=== PATIENT | female | born 1990 | race Caucasian/White ===

== ENCOUNTER → 2019-08-11 09:25 | Outpatient (BNVA) | payer OTHER, SELFPAY | PROVIDERS: Family Provider Nurse Practitioner; PCP Nurse Practitioner Family; Visit Provider Nurse Practitioner Women's Health | DX: Z30.41 Encounter for surveillance of contraceptive pills (principal); N92.1 Excessive and frequent menstruation with irregular cycle; Z01.419 Encounter for gynecological examination (general) (routine) without abnormal findings | CPT/HCPCS: 88175 ==

== ENCOUNTER → 2019-09-15 10:50 | Outpatient (BNVA) | payer OTHER, SELFPAY | PROVIDERS: Family Provider Nurse Practitioner; PCP Nurse Practitioner Family; Visit Provider Obstetrics & Gynecology | DX: R87.612 Low grade squamous intraepithelial lesion on cytologic smear of cervix (LGSIL) (principal) | CPT/HCPCS: 88305 ==

== ENCOUNTER → 2019-12-15 13:56 | Outpatient (BNVA) | payer OTHER, SELFPAY | PROVIDERS: PCP Nurse Practitioner Family; Visit Provider Family Medicine | DX: Z20.828 Contact with and (suspected) exposure to other viral communicable diseases (principal) | CPT/HCPCS: 87635 ==

== ENCOUNTER → 2019-12-16 16:20 | Outpatient (BNVA) | payer OTHER, SELFPAY | PROVIDERS: PCP Nurse Practitioner Family; Visit Provider Obstetrics & Gynecology | DX: Z01.818 Encounter for other preprocedural examination (principal) | CPT/HCPCS: 80053; 87077; 87086; 87186 ==

== ENCOUNTER 2019-12-20 09:37 | Observation (INO) | payer OTHER, SELFPAY ==
[2019-12-15 10:46] VITALS: BMI 26.2
--- NOTE | 2019-12-15 11:22 | ANES.PREANE2 ---
Pre-Anesthetic Assessment Pre-Anesthetic Assessment: Height/Weight: Height 1.63 m Weight 69.4 kg Preop Diagnosis: abnormal bleeding Proposed Procedure: Operation Date: 12/20/19 07:00 Proposed Procedures p Laparoscopic Assist Vaginal Hystectomy w/ Umbilical Hernia [id number](Not Applicable) - Rojas Ruggiero MD s Laparoscopic Salpingo Oophorectomy(Bilateral) - Rojas Ruggiero MD Familial anesthetic complications: epidural wore off, d/t scoliosis Social: Social History: No alcohol and No tobacco Exam: Pre-Anes Outpt Exam: alert, oriented x 3, clear to auscultation bilaterally and regular rate & rhythm Airway: Cervical ROM: WNL MP: 1 Dentition: Full and Other Musc/skel: Musc/skel: Scoliosis Anesthetic Plan: ASA status: 1 Anesthesia: General Risk of > 500 ml blood loss (7ml/kg in children): No PFSH Anesthesia PFSH: Medical History (Updated 10/03/19 @ 14:59 by Cynthia Mcleod LPN) Metrorrhagia Surgical History H/O section 1--07/08/2009 Done for arrest of descent./ cephalopelvic disproportion. Primary low transverse delivery. Performed by Dr. Faulkner [facility] in [place], [place]. 2--02/27/2016 Repeat low transverse section. Performed by Dr. Rojas Ruggiero at [facility] in [place], [place]. H/O lumpectomy She had a lumpectomy in her left breast at the age of 12 and 2 lumpectomies at the age of 16 from a right breast. Patient states all of these were benign History of tonsillectomy (~2006) Family History (Updated 08/26/19 @ 17:48 by Rojas Ruggiero MD) Grandfather Diabetes Paternal grandfather Grandmother Breast cancer Paternal grandmother Family history of thyroid problem Paternal grandmother Family/Other Ovarian cancer Paternal aunt Cervical cancer Paternal cousin Social History (Updated 09/17/19 @ 18:33 by Rojas Ruggiero MD) Smoking and tobacco status: never smoked Alcohol intake: never Female Reproductive History: Date of last menstrual period: 11/22/19 Data Anesthesia Cardiac Studies: No Data to Display
[2019-12-20] VITALS (17 sets, daily range): BP systolic 106–122; BP diastolic 59–84; PULSE 51–82; RESP 14–20; TEMP 36.5–37.4; O2SAT 95–100
[2019-12-20 06:20] LABS: OR HCG Qualitative Urine Negative (Negative)
[2019-12-20] MEDS: phenazopyridine 100 mg Tablet 200 MG PO ×3 (06:24→21:46)
[2019-12-20] MEDS: gabapentin 300 mg Capsule PO (06:25)
[2019-12-20] MEDS: sodium chloride 0.9% 1,000 ML 30 ML IV (06:33)
[2019-12-20] MEDS: ketorolac 30 mg/mL INJ IVP ×2 (06:33→11:51)
[2019-12-20 06:44] LABS: Basophils % 0.4 %; Eosinophils # 0.1 10^3/uL (0.0-0.8); Eosinophils % 1.6 %; Hematocrit 41.3 % (37.0-47.0); Hemoglobin 13.8 g/dL (11.5-15.3); Lymphocytes # 2.2 10^3/uL (0.8-4.8); Lymphocytes % 42.6 %; Mean Corpuscular HGB Conc 33.4 g/dL (30.0-36.0); Mean Corpuscular Hemoglobin 30.1 pg (28.0-34.0); Mean Corpuscular Volume 90.2 fL (81-99); Mean Platelet Volume 10.9 fL (7.4-10.4); Monocytes # 0.4 10^3/uL (0.2-0.9); Monocytes % 8.4 %; Neutrophils # 2.41 10^3/uL (1.8-7.7); Neutrophils % 46.8 %; Nucleated Red Blood Cells % 0 %; Platelet Count 225 10^3/cmm (130-400); Red Blood Count 4.58 10^6/uL (4.1-5.3); White Blood Count 5.1 10^3/uL (4.0-10.0)
--- NOTE | 2019-12-20 06:49 | P.HPUD_ITS ---
Surgery/Procedure H&P Update DATE OF PROCEDURE: December 20, 2019 DATE H&P PERFORMED: 12/16/19 H&P UPDATE INFORMATION: I have reviewed H&P completed within last 30 days, I have examined patient prior to procedure, Changes to prior documentation as noted here and [place] [facility] [place] date indicated CHANGES TO PREVIOUS DOCUMENTATION: Patient found to have asymptomatic bacteriuria on urine sample collected on 12/15. She has been taking Cephalexin for the last 24 hours and will complete a 7 day course. PREOP DIAGNOSIS: Menorrhagia PLANNED PROCEDURE: Operation Date: 12/20/19 07:00 Proposed Procedures p Laparoscopic Assist Vaginal Hystectomy w/ Umbilical Hernia [id number](Not Applicable) - Rojas Ruggiero MD s Laparoscopic Salpingo Oophorectomy(Bilateral) - Rojas Ruggiero MD
--- NOTE | 2019-12-20 06:51 | P.ANESUD_ITS ---
Pre-Anesthetic Update Pre-Anesthetic Assessment: Date of Surgery/Procedure: 12/20/19 Preop Rosy gnosis: Menorrhagia Proposed Procedure: Operation Date: 12/20/19 07:00 Proposed Procedures p Laparoscopic Assist Vaginal Hystectomy w/ Umbilical Hernia [id number](Not Applicable) - Rojas Ruggiero MD s Laparoscopic Salpingo Oophorectomy(Bilateral) - Rojas Ruggiero MD Any changes to Pre-Anesthetic Assessment?: No Last Intake: Intake Last Liquid Date 12/19/19 Last Liquid Time 22:00 Last Solid Date 12/19/19 Last Solid Time 22:00 Labs Last 48hrs: Laboratory Results - last 48 hr 12/20/19 12/20/19 06:30 06:30 WBC 5.1 RBC 4.58 Hgb 13.8 Hct 41.3 MCV 90.2 MCH 30.1 MCHC 33.4 RDW 12.0 L Plt Count 225 MPV 10.9 H Neut % (Auto) 46.8 Lymph % (Auto) 42.6 [place] % (Auto) 8.4 Eos % (Auto) 1.6 Baso % (Auto) 0.4 Neut # (Auto) 2.41 Lymph # (Auto) 2.2 [place] # (Auto) 0.4 Eos # (Auto) 0.1 Baso # (Auto) 0.0 Nucleated RBC % (a uto) 0 Nucleated RBCs # 0.0 Urine HCG, Qual Negative Vitals: Temperature 98.2 F 12/20/19 06:10 Temperature Source Temporal Artery S can 12/20/19 06:10 Pulse Rate 55 L 12/20/19 06:10 Respiratory Rate 18 12/20/19 06:10 Blood Pressure 117/69 12/20/19 06:10 Blood Pressure Rosy n 85 12/20/19 06:10 Pulse Oximetry 99 12/20/19 06:10 Oxygen Delivery Me thod 12/20/19 06:10 Exam: Pre-Anes Outpt Exam: alert, oriented x 3, clear to auscultation bilaterally and regular rate & rhythm Cardiac Studies: No Data to Display
[2019-12-20] MEDS: vasopressin 20 unit/mL INJ INJECTION (08:45)
--- NOTE | 2019-12-20 09:12 | P.OP_ITS ---
Operative Report Date of procedure: December 20, 2019 Pre-op Diagnosis: Menorrhagia with regular cycles, Umbilical hernia without obstruction and w Post-op Diagnosis: Menorrhagia with regular cycles, Umbilical hernia without obstruction and without gangrene, Ovarian and tubal endometriosis Procedure Done: Laparoscopic assisted vaginal hysterectomy with left salpingo- oophorectomy and right salpingectomy, Umbilical hernia repair Specimens removed/disposition: Uterus, cervix, left tube and ovary, right tube Surgeon: Rojas Ruggiero Investigation Lieutenant: None Anesthesia: General Estimated blood loss (mL): 75 IV fluids (mL): 1,000 Complications: None Findings: Minimal omental adhesions to the anterior left pelvic area the pelvic brim. Endometrial implants seen on the left tube and ovary. No other areas of endometriosis identified. Normal-appearing right ovary. Normal-appearing appendix. Small, approximately 5 mm in diameter supraumbilical fascial defect identified with omental fat coming through. Brief History: Patient is a 29-year-old female 4, para 2-0-2-2 with an LMP of 11/22/2019 who is currently on hormonal control. She had presented to the office in August 2019 reporting heavy bleeding. Without the control, she typically bleed every 2 weeks with 7 days of heavy bleeding. During this time she would change a pad every 2 hours with half dollar sized clots present. With the control, she was still bleeding for 7 days at a time with 2 days being heavy and during the heaviest time still changing pads every 2 hours. Clots were still present. Bleeding, however, was occurring every 4 weeks. Due to still having heavy bleeding, patient wanted to proceed to definitive treatment and was requesting hysterectomy. In addition, she had been noted to have a small umbilical hernia identified during . She was requesting that this be repaired at the time of her hysterectomy. She is presenting for that at this time. Procedure: The patient was taken to the operating room where general anesthesia was obtained. She was prepped and draped in the usual sterile fashion in the dorsal supine position with legs in Virgilio style stirrups. Sequential compression boots were placed prior to starting the case. Martínez catheter was inserted and exam under anesthesia was performed. She was found to have first to second-degree uterine prolapse. Weighted speculum was placed in the vagina and the cervix was grasped with a single-tooth tenaculum. A Hulka was placed. The supraumbilical region was injected with 50-50 mixture of 1% lidocaine with epinephrine and 0.5% Marcaine plain. Skin incision was made with a knife in the upper edge of the navel and a size 10 trocar and sheath were inserted under direct visualization using an Optiview type technique. Trocar was removed and replaced with just the laparoscope confirming intra-abdominal placement. The anterior abdominal wall was inspected and noted to be free of adhesions. In the right and left lower quadrants, lateral to the inferior epigastric vessels, the skin was injected with 50-50 mixture of 1% lidocaine with epinephrine and 0.5% Marcaine plain. Skin incisions were made with the knife and a 5 mm trocar and sheath were inserted under direct visualization at each site. The pelvis was inspected. The right tube and ovary were normal in appearance. Endometriosis was noted on the left tube and left ovary. Uterus was normal in appearance. Anterior and posterior cul-de-sac were normal in appearance. She had a few omental adhesions to the anterior left pelvis and along the left pelvic brim. Appendix was normal in appearance. Using the Voyant sealing device, the omental adhesions were easily taken down. Using the Voyant sealing device, the left infundibulopelvic ligament was sealed and cut and the dissection carried along the underlying mesovarium mesosalpinx until the round ligament was reached.. The round ligament was sealed and cut and the dissection carried along the lateral aspect of the uterus to approximately the level of the internal os. The broad ligament was and the dissection carried over the lower uterine segment. Using the Voyant sealing device, right mesosalpinx was sealed and cut in multiple bites until the corner of the uterus was reached. The right utero- ovarian ligament and vessels were then sealed and cut. The round ligament was sealed and cut and the dissection carried along the lateral aspect of the uterus to approximately the level of the internal os. The broad ligament was and the dissection carried over the lower uterine segment to meet with the dissection from the contralateral side. The dissection areas were noted to be hemostatic. The abdomen was deflated. The patient's legs were placed in the high lithotomy position. The Hulka was removed and a weighted speculum placed in the vagina. The cervix was regrasped with single-tooth tenaculums. The cervix was circumferentially injected with dilute Pitressin solution. A circumferential incision was made with the knife around the cervix. Bladder was bluntly dissected off of the lower uterine segment. Posterior cul-de-sac was sharply entered and the peritoneum tagged to the vaginal mucosa in the midline. A long weighted retractor was placed in the posterior cul-de-sac. The uterosacral ligaments were clamped, cut, and suture ligated with 0 Vicryl suture bilaterally. The cardinal ligaments were clamped, cut, and suture ligated with 0 Vicryl suture bilaterally. The bladder was sharply dissected away from the uterus and the anterior cul-de-sac entered. A long right angle retractor was used to elevate the bladder away from the uterus. The remaining portion of the broad ligament was serially clamped, cut, and suture ligated with 0 Vicryl suture until the uterus was completely excised. The pedicles were inspected and noted to be hemostatic. Posterior edge of the vaginal cuff was oversewn with 0 Vicryl suture in a running locking fashion incorporating the peritoneum to the vaginal mucosa. This extended from the 3:00 position to the 9:00 position posteriorly. The vaginal cuff was closed in a vertical fashion using 0 Vicryl suture in an interrupted [id number] fashion. The uterosacral ligaments and cardinal ligaments were tied in the midline using previously held sutures. The cuff was noted to be hemostatic. The abdomen was reinflated and and the pelvis thoroughly inspected. The areas of dissection were noted to be hemostatic. They were inspected under normal and low pressures. The abdomen was deflated and the ports removed. The supraumbilical area was further inspected in the area of her reported hernia. Small small pocket was-identified at the upper edge of the umbilical incision that when opened omental fat was found. It was reduced back into the abdomen and an approximate 5 mm fascial defect was identified, adjacent to the fascial defect made with the trocar placement. Using 0 Vicryl suture, both the umbilical hernia fascial defect and the fascial trocar site were closed. The 5 mm sites were closed with single stitches of 4-0 Vicryl suture. The umbilical site was closed with 4-0 Vicryl suture in a subcuticular fashion. Skin glue was applied. Patient tolerated the procedures well. Sponge needle and instrument counts were correct. DRAINS: Martínez catheter POSTOPERATIVE STATUS: The patient was transferred to the recovery room in satisfactory condition.
--- NOTE | 2019-12-20 09:45 | PM.PACU ---
PACU note Post-Anesthesia Exam: awake and vital signs stable Disposition: admitted
[2019-12-20] MEDS: HYDROcodone-acetaminophen 5-325 mg Tablet PO ×2 (10:23→18:37)
[2019-12-20] MEDS: dextrose 5%-lactated ringers 1,000 ML 125 ML IV (10:23)
[2019-12-20] MEDS: acetaminophen 325 mg Tablet 650 MG PO (13:35)
[2019-12-20] MEDS: morphine 4 mg/mL SDV 1 mL IVP ×2 (15:39→19:53)
--- NOTE | 2019-12-20 17:42 | PC.NURSE ---
AMBULATION PATIENT SAT IN THE CHAIR AND AMBULATED IN THE [facility] WITHOUT DIFFICULTY. SIMS CATHETER REMOVED.
[2019-12-20] MEDS: docusate sodium 100 mg Capsule PO (17:45)
[2019-12-20] MEDS: cephALEXin 500 mg Capsule PO (17:45)
[2019-12-20] MEDS: ibuprofen 800 mg tablet PO (21:45)
[2019-12-21 04:00] VITALS: BP 107/71; PULSE 67; RESP 20; TEMP 37.1; O2SAT 95
[2019-12-21] MEDS: HYDROcodone-acetaminophen 5-325 mg Tablet PO ×2 (04:47→11:11)
[2019-12-21 06:03] LABS: Hematocrit 35.5 % (37.0-47.0); Hemoglobin 11.7 g/dL (11.5-15.3); Mean Corpuscular Hemoglobin 30.1 pg (28.0-34.0); Mean Corpuscular Volume 91.3 fL (81-99); Mean Platelet Volume 11.1 fL (7.4-10.4); Platelet Count 174 10^3/cmm (130-400); Red Blood Count 3.89 10^6/uL (4.1-5.3); White Blood Count 8.4 10^3/uL (4.0-10.0)
[2019-12-21 07:22] VITALS: BP 116/64; PULSE 67; RESP 18; TEMP 36.8; O2SAT 96
--- NOTE | 2019-12-21 08:21 | PM.DCS ---
Discharge Providers Date of Admission: 12/20/19 09:37 Date of Discharge: December 21, 2019 Attending Provider at Admission: Rojas Ruggiero MD Attending Provider at Discharge: Rojas Ruggiero MD Primary Care Provider: SANDRA Silva Diagnoses at Discharge Discharge Diagnosis (1) Menorrhagia: Status: Acute Qualifiers: Menorrhagia type: with regular cycle Qualified Code(s): N92.0 - Excessive and frequent menstruation with regular cycle (2) Umbilical hernia: Status: Acute Qualifiers: Obstruction and gangrene presence: without obstruction or gangrene Qualified Code(s): K42.9 - Umbilical hernia without obstruction or gangrene (3) Asymptomatic bacteriuria: Status: Acute Reason for Visit Reason for Visit: Menorrhagia, Umbilical Hernia Hospital Course Hospital Course: Patient is a 29-year-old white female 4, para 2-0-2-2 who was presenting to the hospital for surgical treatment of heavy bleeding. She was typically bleeding every 2 weeks with 7 days of heavy bleeding. She would change a pad every 2 hours with up to half dollar size clots present. She had been started on hormonal control which switched her to every 4-week cycles, but they were still lasting 7 days and having to change pads every 2 hours. In addition she had been found to have a small umbilical hernia during and now wishes to have surgery for treatment of the umbilical hernia and also the hysterectomy. On preoperative testing, she had been found to have asymptomatic bacteriuria and was on Keflex prior to the surgery. Patient was brought to the hospital where a laparoscopic assisted vaginal hysterectomy with left salpingo-oophorectomy and right salpingectomy with umbilical hernia repair was performed. She tolerated the surgery well. Following surgery she initially required parenteral pain medication but was able to be switched over to oral medication by the evening. She was tolerating liquids during the day and switch to a regular diet by the evening. On postoperative day 1, she reports doing much better. She is tolerating a regular diet this morning without nausea or vomiting. She stated that her pain was able to be controlled on oral pain medication during the night. She denied shortness of breath or chest pain. She denied lightheadedness or dizziness with ambulation. She denied problems with urination after the catheter was removed last night. She stated that she had had some minimal bleeding vaginally. She was requesting to go home. PHYSICAL EXAM: See below PLAN Discharge instructions were discussed with the patient. Patient was to follow-up in the office in approximately 2 weeks for an incision check. She was instructed to continue the Keflex that she was taking prior to admission due to preadmission asymptomatic bacteriuria. She was sent home with new prescriptions for ibuprofen and [place]. Physical Exam Const: COMMON NORMALS: no acute distress, average body habitus, alert and well nourished GENERAL APPEARANCE: well developed ORIENTATION/CONSCIOUSNESS: Yes oriented to person, Yes oriented to place and Yes oriented to time Resp: COMMON NORMALS: normal respiratory effort and clear to auscultation bilaterally AUSCULTATION: clear to auscultation bilaterally Cardio: COMMON NORMALS: regular rate, regular rhythm, No gallops present (Cardio), No murmurs present (Cardio) and No rub (Cardio) RATE: regular rate RHYTHM: regular rhythm GI: COMMON NORMALS: Soft to palpation, No hepatosplenomegaly present and no masses INSPECTION: Yes incision (Laparoscopy sites well approximated with skin glue) AUSCULTATION: Yes normoactive bowel sounds PALPATION: Yes Soft to palpation, Yes Tenderness to palpation present (GI) (Tender in the lower abdomen), Yes No hepatosplenomegaly present and No Hernia present : EXTERNAL FEMALE EXAM: No Hernia present Extremity: COMMON NORMALS: no clubbing, cyanosis or edema and no calf tenderness Neuro: SENSORIUM/ORIENTATION: Yes alert, Yes oriented to person, Yes oriented to place and Yes oriented to time Psych: COMMON NORMALS: normal affect MOOD & AFFECT: Yes euthymic mood Urinary Catheter Management^: Martínez: Cath Placed During This Visit: yes Urinary Catheter Date of Insertion: 12/20/19 Urinary Catheter Time of Insertion: 07:40 Discharge Data Data Completed and Pending: Pending at discharge Category Date Time Status ES surgery / GI i mages Routine Exams 12/20/19 06:35 Taken Pathology: Surgic al [PTH] Routine Pth 12/20/19 09:23 Received Labs from last 24 hours 12/21/19 12/20/19 05:54 06:30 WBC 8.4 RBC 3.89 L Hgb 11.7 Hct 35.5 L MCV 91.3 MCH 30.1 MCHC 33.0 RDW 12.0 L Plt Count 174 MPV 11.1 H Blood Type A Positive Rho(D) Type Positive Antibody Screen Negative Vitals: Last Vital Signs Temp 98.2 F 12/21/19 07:22 Pulse 67 12/21/19 07:22 Resp 18 12/21/19 07:22 BP 116/64 12/21/19 07:22 Pulse Ox 96 12/21/19 07:22 Discharge Plan Discharge Patient Disposition: Home Condition: Stable Prescriptions: New hydrocodone-acetaminophen 5-325 mg Tablet 1 - 2 tab PO Q6H PRN (Reason: Moderate To Severe Pain) Qty: 30 RF: 0 ibuprofen 800 mg Tablet 800 mg PO TID PRN (Reason: pain) Qty: 40 RF: 0 Continued scopolamine base 1 mg over 3 days patch 3 day 1 patch TRANSDERMA Q3D Qty: 1 RF: 0 cephalexin 500 mg capsule 500 mg PO BID 7 Days Qty: 14 RF: 0 Claritin 10 mg Tablet 10 mg PO DAILY PRN (Reason: Allergy Symptoms) RF: 0 Discontinued levonorgestrel-ethinyl estrad [Levora-28] 0.15-0.03 mg tablet 1 tab PO DAILY Qty: 84 RF: 3 Discharge Orders: Discharge Order (Routine); Ordered 12/21/19 Ordered By: Rojas Ruggiero Referrals: Rojas Ruggiero MD [Physician] - 01/04/20 1:15 pm (Postoperative appointment.) Discharge Diet: Regular Discharge Activity: Limit activity as instructed Patient Instructions: OB Abdominal Surgery - [facility] Discharge Attestations Time Spent in Discharge Care*: less than 30 min Quality Metrics Clinical Quality Measures During this hospital stay, did patient experience: None Coding Level of Care Code Acute Feller Buncher Operator for Chg Fwd Exam Detailed Diagnoses Menorrhagia N92.0 Menorrhagia type: with regular cycle Umbilical hernia K42.9 Obstruction and gangrene presence: without obstruction or gangrene Asymptomatic bacteriuria R82.71
--- NOTE | 2019-12-21 08:21 | ANE.PACU2 ---
Inpatient post-anesthesia follow up: Airway intact: Yes Vital signs: Temperature 98.2 F Pulse Rate 67 Respiratory Rate 18 Blood Pressure 116/64 Pulse Oximetry 96 Oxygen Delivery Me thod Room Air Oxygen Flow Rate 8 Fraction of Inspir ed Oxygen Hydration adequate: Yes Nausea and vomiting: No Pain level: 1 Mental status: Baseline
[2019-12-21] MEDS: phenazopyridine 100 mg Tablet 200 MG PO (09:12)
[2019-12-21] MEDS: docusate sodium 100 mg Capsule PO (09:13)
[2019-12-21] MEDS: cephALEXin 500 mg Capsule PO (09:13)
[2019-12-21] MEDS: ibuprofen 800 mg tablet PO (09:13)
[2019-12-21 11:26] VITALS: BP 116/64; PULSE 67; RESP 18; TEMP 36.8; O2SAT 96
== END 2019-12-21 11:27 | disposition home or self-care (01) ==
LOC: MEDSURG 09:37
PROVIDERS: Anesthesiology; Admitting Provider Obstetrics & Gynecology; PCP Nurse Practitioner Family; Visit Provider Obstetrics & Gynecology
PROC: 0UT9FZZ Resection of Uterus, Via Natural or Artificial Opening With Percutaneous Endoscopic Assistance (ICD-10-PCS; CPT 49585; principal; 2019-12-20 07:00)
PROC: (CPT 58661; 2019-12-20 07:00)
PROC: (CPT 58661; 2019-12-20 07:00)
DX: N92.0 Excessive and frequent menstruation with regular cycle (principal); K42.9 Umbilical hernia without obstruction or gangrene; R82.71 Bacteriuria
CPT/HCPCS: 49585; 58552; 12345; 36415; 81025; 84703; 85025; 85027; 86850; 86900; 88307; 96361; 96365; 96374; 96375; G0378; J0131; J0690; J1100; J1885; J2270; J2405; J2704; J3010; J3490; J7030

== ENCOUNTER → 2021-01-17 14:34 | Outpatient (BNVA) | payer OTHER, SELFPAY | PROVIDERS: PCP Family Medicine; Visit Provider Surgery | DX: Z20.822 Contact with and (suspected) exposure to COVID-19 (principal); K42.9 Umbilical hernia without obstruction or gangrene | CPT/HCPCS: 87635 ==

== ENCOUNTER 2021-01-23 05:34 | Day surgery (SDC) | payer OTHER, SELFPAY ==
[2021-01-22 10:31] VITALS: BMI 29.7
[2021-01-23] VITALS (11 sets, daily range): BP systolic 109–130; BP diastolic 66–80; PULSE 49–79; RESP 10–20; TEMP 36.2–36.7; O2SAT 96–100
--- NOTE | 2021-01-23 06:52 | P.HP_ITS ---
Same Day Surgery H&P Indication for Procedure/HPI DATE OF PROCEDURE: January 23, 2021 CHIEF COMPLAINT/INDICATIONFOR SURGICAL PROCEDURE: ventral hernia repair PREOP DIAGNOSIS: Ventral hernia PLANNED PROCEDRUE: Operation Date: 01/23/21 07:00 Proposed Procedures p Laparoscopic Ventral Hernia Repair [id number] K42.9(Not Applicable) - Dillan Luevano MD Medications/Allergies* Home Medications Medication Instructions Recorded Confirmed Type loratadine [Claritin] 10 mg PO DAILY PRN 12/20/19 01/22/21 History Allergies/Adverse Reactions Allergy/AdvReac Type Severity Reaction Status Date / Time No Known Allergies Allergy Verified 10/16/20 08:54 Pertinent History/Comorbid Conditions* Medical History (Updated 10/16/20 @ 09:18 by Dillan Luevano MD) 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 Patient states all of these were benign History of tonsillectomy (~2006) S/P laparoscopic assisted vaginal hysterectomy (LAVH) (12/20/19) With LSO, RS, Umbilical hernia repair. DX: Menorrhagia. [place] [facility] [place] S/P primary low transverse (07/08/09) DX: COPD. [place]. Faulkner [place] [facility] [place] S/P repeat low transverse (02/27/16) [place] [place] [facility] [place]. Family History (Updated 08/14/20 @ 08:09 by Carrie Ontiveros) Cervical cancer Family/Other Paternal Aunt--dx age unknown Ovarian cancer Family/Other Paternal aunt--dx age unknown Diabetes Grandfather Paternal grandfather Breast cancer Grandmother Paternal grandmother--dx age 37 Family history of thyroid problem Grandmother Paternal grandmother Denies family history of Heart disease Hypercholesteremia Hypertension Stroke Social History Smoking and tobacco status: never smoked Pertinent Exam Findings alert, oriented x 3 and regular rate & rhythm Recommendations Surgery/Procedure today Coding Level of Care Code Acute Manufacturing Electrician for Chg Fwd
--- NOTE | 2021-01-23 07:18 | ANES.PREANE2 ---
Pre-Anesthetic Assessment Pre-Anesthetic Assessment: Height/Weight: Height 1.63 m Weight 78.471 kg Temp Pulse Resp BP Pulse Ox 98.1 F 57 L 18 120/69 100 01/23/21 06:25 01/23/21 06:25 01/23/21 06:25 01/23/21 06:25 01/23/21 06:25 Preop Diagnosis: Ventral hernia Proposed Procedure: Operation Date: 01/23/21 07:00 Proposed Procedures p Laparoscopic Ventral Hernia Repair 53462 K42.9(Not Applicable) - Dillan Luevano MD Was Beta Reynaldo taken within 24 hours: N/A Was Clonidine taken within 24 hours: N/A Last intake: Intake Last Liquid Date 01/22/21 Last Liquid Time 20:00 Last Solid Date 01/22/21 Last Solid Time 18:30 Social: Social History: No alcohol and No tobacco Exam: Pre-Anes Outpt Exam: alert, oriented x 3, clear to auscultation bilaterally and regular rate & rhythm Airway: Submandibular: WNL Cervical ROM: WNL MP: 2 Dentition: Full History/ROS: No significant history except as noted Anesthetic Plan: ASA status: 1 Anesthesia: General Risk of > 500 ml blood loss (7ml/kg in children): No PFSH Anesthesia PFSH: Medical History (Updated 10/16/20 @ 09:18 by Dillan Luevano MD) 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 Patient states all of these were benign History of tonsillectomy (~2006) S/P laparoscopic assisted vaginal hysterectomy (LAVH) (12/20/19) With LSO, RS, Umbilical hernia repair. DX: Menorrhagia. Performed by Dr. Ruggiero at [facility] in [place], [place]. S/P primary low transverse (07/08/09) DX: COPD. Performed by Dr. Faulkner at [facility] in [place], [place]. S/P repeat low transverse (02/27/16) Performed by Dr. Ruggiero at [facility] in [place], [place]. Family History Grandfather Diabetes Paternal grandfather Grandmother Breast cancer Paternal grandmother--dx age 37 Family history of thyroid problem Paternal grandmother Family/Other Ovarian cancer Paternal aunt--dx age unknown Cervical cancer Paternal Aunt--dx age unknown Denies family history of Heart disease Hypercholesteremia Hypertension Stroke Social History Smoking and tobacco status: never smoked Female Reproductive History: Date of last menstrual period: 11/22/19 Data Anesthesia Cardiac Studies: No Data to Display
--- NOTE | 2021-01-23 08:50 | P.OP_ITS ---
Operative Report Date of procedure: January 23, 2021 Pre-op Diagnosis: Symptomatic incarcerated ventral hernia Post-op Diagnosis: Incarcerated ventral hernia containing preperitoneal fat measuring 7 x 6 cm Procedure Done: Laparoscopic repair of incarcerated ventral hernia using Ventralight ST mesh measuring 15 x 15 cm Specimens removed/disposition: none Surgeon: Dillan Luevano Anesthesia: General Condition: stable Disposition: PACU Procedure: The patient was taken to the Operating Room and was intubated under general anesthesia after the antibiotic had been administered. The abdomen was prepped and draped in a sterile manner. Using a 15 blade, a 2-cm incision was made in the left upper quadrant in the anterior axillary line and pneumoperitoneum was created using Verres needle. A 10 mm Dheeraj port was placed and 15 mm of pneumoperitoneum was created after a 10 mm 30? scope had been introduced. 5 mm port was placed at the level of the umbilicus bilaterallly under direct visualization. Using a combination of electrocautery and scissors the peritoneum in the midline was taken down and the omental fat within the hernial sac was reduced. A spinal needle was introduced through the abdominal wall and the edges of the hernial defect were marked and measured 7x6 cm. A 4 cm margin was marked on the abdominal wall on the outer edge of the hernial defect. 15 x [address] mesh was selected and 4 separate 2-0 Wilson-Michael sutures were placed at the 4 corners of the mesh. Grannie needle was passed through the stab incisions and used to grasp the free ends of the Wilson- Michael sutures which were then used to pull the mesh up against the abdominal wall; 5 mm SecurStraps were placed 1 cm apart along the edge of the mesh to hold it against the abdominal wall. At the end of this, it was noted that the mesh was well positioned over the hernial defect. 20 cc of saline mixed with 20cc of Exparel mixed with 20cc of 0.5% Marcaine was infiltrated in the midclavicular line bilaterally under laparoscopic visualization for a TAP block. All ports were removed under direct visualization and there was no bleeding noted from the port sites. The external oblique aponeurosis was approximated at LUQ port site using figure of eight 0 Vicryl suture. The subcutaneous tissue was approximated using 3-0 Vicryl sutures. The skin at all 3 port sites was closed using subcuticular 4-0 Monocryl suture. The stab incisions and the port sites were covered with Dermabond. Abdominal binder was placed at the end of the procedure and the patient was extubated and transferred to recovery room in stable condition.
[2021-01-23] MEDS: fentaNYL 50 mcg/mL INJ 2mL IVP ×2 (09:00→09:15)
[2021-01-23] MEDS: ondansetron 2 mg/ML SDV 2 mL 4 MG IVP (09:08)
[2021-01-23] MEDS: HYDROcodone-acetaminophen 5-325 mg Tablet 1 TAB PO (10:05)
[2021-01-23] MEDS: sodium chloride 0.9% 1,000 ML 30 ML IV (10:53)
--- NOTE | 2021-01-23 14:54 | ANE.PACU2 ---
Inpatient post-anesthesia follow up: Airway intact: Yes Vital signs: Temperature 97.4 F Pulse Rate 69 Respiratory Rate 18 Blood Pressure 130/80 Pulse Oximetry 98 Oxygen Delivery Me thod Room Air Oxygen Flow Rate Fraction of Inspir ed Oxygen Hydration adequate: Yes Nausea and vomiting: No Pain level: 2 Mental status: Baseline
== END 2021-01-23 10:45 | disposition home or self-care (01) ==
PROVIDERS: PCP Family Medicine; Visit Provider Surgery
PROC: 0WQF4ZZ Repair Abdominal Wall, Percutaneous Endoscopic Approach (ICD-10-PCS; CPT 49653; principal; 2021-01-23 07:00)
DX: K43.6 Other and unspecified ventral hernia with obstruction, without gangrene (principal); Z90.710 Acquired absence of both cervix and uterus
CPT/HCPCS: 49653; 96365; C1781; C9290; J0690; J1100; J2370; J2405; J2704; J2710; J3010; J3490; J7030

== ENCOUNTER 2021-07-26 10:30 | Day surgery (SDC) | payer OTHER, SELFPAY ==
[2021-07-25 12:20] VITALS: BMI 26.9
[2021-07-26] VITALS (7 sets, daily range): BP systolic 96–126; BP diastolic 63–74; PULSE 53–68; RESP 18–20; TEMP 36.2–36.8; O2SAT 99–100
--- NOTE | 2021-07-26 10:51 | P.HP_ITS ---
Same Day Surgery H&P Indication for Procedure/HPI DATE OF PROCEDURE: July 26, 2021 CHIEF COMPLAINT/INDICATIONFOR SURGICAL PROCEDURE: excison abdominal wall mass PREOP DIAGNOSIS: Symptomatic incarcerated ventral hernia PLANNED PROCEDURE: Operation Date: 07/26/21 12:00 Proposed Procedures p excision of abd wall mass 63679/r22.2(Not Applicable) - Dillan Luevano MD Medications/Allergies* Home Medications Medication Instructions Recorded Confirmed Type loratadine 10 mg tablet (Claritin) 10 mg PO DAILY PRN 12/20/19 07/25/21 History Allergies/Adverse Reactions Allergy/AdvReac Type Severity Reaction Status Date / Time No Known Allergies Allergy Verified 07/25/21 12:17 Pertinent History/Comorbid Conditions* Medical History (Updated 06/11/21 @ 12:11 by Dillan Luevano MD) 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 Patient states all of these were benign H/O ventral hernia repair (01/23/21) History of tonsillectomy (~2006) S/P laparoscopic assisted vaginal hysterectomy (LAVH) (12/20/19) With LSO, RS, Umbilical hernia repair. DX: Menorrhagia. Performed by Dr. Ruggiero at [facility] in [place], [place]. S/P primary low transverse (07/08/09) DX: COPD. Performed by Dr. Faulkner at [facility] in [place], [place]. S/P repeat low transverse (02/27/16) Performed by Dr. Ruggiero at [facility] in [place], [place]. Family History (Updated 08/14/20 @ 08:09 by Carrie Ontiveros) Cervical cancer Family/Other Paternal Aunt--dx age unknown Ovarian cancer Family/Other Paternal aunt--dx age unknown Diabetes Grandfather Paternal grandfather Breast cancer Grandmother Paternal grandmother--dx age 37 Family history of thyroid problem Grandmother Paternal grandmother Denies family history of Heart disease Hypercholesteremia Hypertension Stroke Social History Smoking and tobacco status: never smoked Pertinent Exam Findings alert, oriented x 3 and regular rate & rhythm Recommendations Surgery/Procedure today Coding Level of Care Code Acute 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
--- NOTE | 2021-07-26 11:05 | P.ANESASSM_ITS ---
Pre-Anesthetic Assessment Height/Weight: Height 1.63 m Weight 71.214 kg Temp Pulse Resp BP Pulse Ox 97.1 F L 54 L 20 H 104/68 100 07/26/21 10:58 07/26/21 10:58 07/26/21 10:58 07/26/21 10:58 07/26/21 10:58 Preop Diagnosis: subcutaneous mass Operation Date: 07/26/21 12:00 Proposed Procedures p excision of abd wall mass 66526/r22.2(Not Applicable) - Dillan Luevano MD Familial anesthetic complications: none Was Beta Reynaldo taken within 24 hours: N/A Was Clonidine taken within 24 hours: N/A Last intake: Intake Last Liquid Date 07/25/21 Last Liquid Time 21:30 Last Solid Date 07/25/21 Last Solid Time 18:30 Social No alcohol and No tobacco Exam alert, oriented x 3, clear to auscultation bilaterally and regular rate & rhythm Airway Mallampati: Class I Dentition: full Pulmonary None reported CV/HEM None reported None reported Hepatic None reported GI None reported Metabolic None reported Musc/skel None reported Neuropsych None reported Anesthetic Plan ASA status: 1 Anesthesia: MAC Risk of > 500 ml blood loss (7ml/kg in children): No Medications/Allergies Home Medications Medication Instructions Recorded Confirmed Last Taken Type loratadine 10 mg tablet (Claritin) 10 mg PO DAILY PRN 12/20/19 07/26/21 07/24/21 History phentermine 37.5 mg tablet 37.5 mg PO DAILY #30 tab 05/09/21 07/26/21 07/11/21 Rx Allergies Allergy/AdvReac Type Severity Reaction Status Date / Time No Known Allergies Allergy Verified 07/26/21 10:57 [facility] Anesthesia Medical History 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 Patient states all of these were benign H/O ventral hernia repair (01/23/21) History of tonsillectomy (~2006) S/P laparoscopic assisted vaginal hysterectomy (LAVH) (12/20/19) With LSO, RS, Umbilical hernia repair. DX: Menorrhagia. [place] [facility] [place] S/P primary low transverse (07/08/09) DX: COPD. Per[place] Dr. Faulkner [place] [facility] [place]. S/P repeat low transverse (02/27/16) Per[place]. Ruggiero [place] [facility] [place]. Family History Grandfather Diabetes Paternal grandfather Grandmother Breast cancer Paternal grandmother--dx age 37 Family history of thyroid problem Paternal grandmother Family/Other Ovarian cancer Paternal aunt--dx age unknown Cervical cancer Paternal Aunt--dx age unknown Denies family history of Heart disease Hypercholesteremia Hypertension Stroke Social History Smoking and tobacco status: never smoked Female Reproductive History Date of last menstrual period: 11/22/19 Data Anesthesia Cardiac Studies: No Data to Display
[2021-07-26] MEDS: sodium chloride 0.9% 1,000 ML 30 ML IV (11:14)
[2021-07-26] MEDS: lidocaine 2% INJ 20 mL INJECTION (12:09)
--- NOTE | 2021-07-26 13:01 | P.OP_ITS ---
Operative Report Date of procedure: July 26, 2021 Pre-op diagnosis: Subcutaneous mass at the umbilicus after laparoscopic recurrent umbilical hernia repair Post-op diagnosis: 2.5 x 2.5 cm subcutaneous mass at the umbilicus, likely incarcerated fat/seroma Procedure done: Excision of subcutaneous mass abdominal wall measuring 2.5 x 2.5 cm Specimens removed/disposition: Subcutaneous mass abdominal wall Surgeon: Dillan Luevano Anesthesia: MAC Condition: stable Disposition: PACU Procedure: The patient was taken to the operating room and placed under MAC after IV antibiotic had been administered. The abdomen was prepped and draped in a sterile manner. Using 15 blade a 2 cm incision was made over the existing umbilical scar, subcutaneous tissue was dissected free from the underlying well- rounded mass measuring 2.5 x 2.5 cm using electrocautery. The mass was dissected free from the underlying muscular fascia and sent to pathology. Wound was irrigated with saline, hemostasis ensured and the tiny defect in the fascia was closed using [id number] 0 Vicryl suture. The subcutaneous tissues were approximated using interrupted 3-0 Vicryl suture and skin was closed using running subcuticular 4-0 Monocryl suture and Dermabond. 2 x 2 gauze was placed within the umbilicus and covered with Tegaderm. 20 cc of 1% lidocaine with 0.25% Marcaine was infiltrated around the incision. The patient was transferred to recovery room in stable condition.
[2021-07-26] MEDS: HYDROcodone-acetaminophen 5-325 mg Tablet 1 TAB PO (13:12)
--- NOTE | 2021-07-26 14:00 | ANE.PACU2 ---
Inpatient post-anesthesia follow up: Airway intact: Yes Vital signs: Temperature 98.0 F Pulse Rate 64 Respiratory Rate 18 Blood Pressure 96/63 Pulse Oximetry 100 Oxygen Delivery Me thod Room Air Oxygen Flow Rate Fraction of Inspir ed Oxygen Hydration adequate: Yes Nausea and vomiting: No Pain level: 1 Mental status: Baseline
== END 2021-07-26 13:21 | disposition home or self-care (01) ==
PROVIDERS: PCP Family Medicine; Visit Provider Surgery
PROC: (CPT 11403; principal; 2021-07-26 12:00)
DX: D17.1 Benign lipomatous neoplasm of skin and subcutaneous tissue of trunk (principal); Z98.890 Other specified postprocedural states
CPT/HCPCS: 11403; 12031; 88307; J0690; J1100; J2250; J2405; J2704; J3010; J3490; J7030

== ENCOUNTER → 2021-12-05 09:55 | Outpatient (BNVA) | payer OTHER, SELFPAY | PROVIDERS: PCP Family Medicine; Visit Provider Nurse Practitioner Women's Health | DX: Z11.3 Encounter for screening for infections with a predominantly sexual mode of transmission (principal); R23.8 Other skin changes; B00.9 Herpesviral infection, unspecified; Z01.419 Encounter for gynecological examination (general) (routine) without abnormal findings | CPT/HCPCS: 86592; 86803; 87340; 87491; 87591; 87661; 87806 ==

== ENCOUNTER → 2021-12-26 10:12 | Outpatient (BNVA) | payer OTHER, SELFPAY | PROVIDERS: PCP Family Medicine; Visit Provider Nurse Practitioner Women's Health | DX: R23.8 Other skin changes (principal) | CPT/HCPCS: 86695; 86696 ==

== ENCOUNTER → 2022-08-25 11:48 | Outpatient (BNVA) | payer OTHER, SELFPAY | PROVIDERS: PCP Family Medicine; Visit Provider Family Medicine | DX: Z00.00 Encounter for general adult medical examination without abnormal findings (principal); E03.9 Hypothyroidism, unspecified; B36.0 Pityriasis versicolor; R68.89 Other general symptoms and signs | CPT/HCPCS: 80053; 80061; 84443; 85025 ==

== ENCOUNTER → 2022-10-14 15:41 | Outpatient (BNVA) | payer OTHER, SELFPAY | PROVIDERS: PCP Family Medicine; Visit Provider Nurse Practitioner Family | DX: R30.0 Dysuria (principal) | CPT/HCPCS: 81000 ==

== ENCOUNTER → 2022-12-31 09:09 | Outpatient (BNVA) | payer OTHER, SELFPAY | PROVIDERS: PCP Family Medicine; Visit Provider Nurse Practitioner Women's Health | DX: R30.0 Dysuria (principal); B00.9 Herpesviral infection, unspecified; Z11.3 Encounter for screening for infections with a predominantly sexual mode of transmission | CPT/HCPCS: 84315; 86592; 86803; 87077; 87086; 87184; 87340; 87806 ==

== ENCOUNTER → 2023-02-06 16:36 | Outpatient (BNVA) | payer OTHER, SELFPAY | PROVIDERS: PCP Family Medicine; Visit Provider Nurse Practitioner Women's Health | DX: R30.0 Dysuria (principal) | CPT/HCPCS: 81000 ==

== ENCOUNTER → 2023-02-10 15:13 | Outpatient (BNVA) | payer OTHER, SELFPAY | PROVIDERS: PCP Family Medicine; Visit Provider Nurse Practitioner Family | DX: R30.0 Dysuria (principal) | CPT/HCPCS: 87077; 87086; 87184 ==

== ENCOUNTER 2023-03-15 06:44 | Emergency (ER) | payer OTHER, SELFPAY ==
--- NOTE | 2023-03-15 06:46 | XRR_ITS ---
PROCEDURE INFORMATION: Exam: XR Chest Exam date and time: 03/15/2023 7:02 AM Age: 33 years old Clinical indication: Cough and fever; Additional info: Cough, fever TECHNIQUE: Imaging protocol: Radiologic exam of the chest. Views: 2 views. COMPARISON: ES surgery / GI images 12/20/2019 5:38 AM FINDINGS: Lungs: Unremarkable. No consolidation. Pleural spaces: Unremarkable. No pleural effusion. No pneumothorax. Heart/Mediastinum: Unremarkable. No cardiomegaly. Bones/joints: Unremarkable. XR/XR chest 2V* [id number] IMPRESSION: No acute findings.
[2023-03-15 06:50] VITALS: BP 103/64; PULSE 96; RESP 18; TEMP 36.9; O2SAT 96; BMI 24.1
--- NOTE | 2023-03-15 06:59 | ED_ITS ---
HPI - Fever 2 General: Chief Complaint: Fever Stated Complaint: sob, fever, body aches, headache, abd pain Time Seen by Provider: 03/15/23 06:50 History of Present Illness: 33-year-old female presents emerged part with complaints of intermittent fever starting approximately 6 days ago. She states she had a elevated temperature of 102 approximately 6 days ago which was the start of her symptoms. She states that her fever returned last night and she states she also has generalized abdominal cramping. She does complain of right lower and right upper generalized abdominal pain she denies hematic emesis or hematochezia. She does endorse recent sick contacts. She also complains of nonproductive cough as well as a generalized headache and vague body aches. Associated symptoms: Reports headache(s) Review of Systems 2 General: Reports: 10 or more systems reviewed and unremarkable except in HPI and below Const: Reports: fever(s), body aches and fatigue Resp: Reports: non-productive cough Neuro: Reports: headache(s) PFSH ED 2 PFSH: Medical History Abnormal weight Cervical intraepithelial neoplasia I cervix removed with hyst No pertinent past medical history neghx: htn,dm,thyroid,dvt/pe PCP: Dr. Ashish crowley Umbilical hernia Surgical History H/O lumpectomy She had a lumpectomy in her left breast at the age of 12 and 2 lumpectomies at the age of 16 from a right breast. Patient states all of these were benign H/O ventral hernia repair (01/23/21) History of tonsillectomy (~2006) S/P laparoscopic assisted vaginal hysterectomy (LAVH) (12/20/19) With LSO, RS, Umbilical hernia repair. DX: Menorrhagia. Performed by Dr. Ruggiero at [facility] in [place], [place]. S/P primary low transverse (07/08/09) DX: COPD. Performed by Dr. Faulkner at [facility] [place] in [place], [place]. S/P repeat low transverse (02/27/16) Performed by Dr. Ruggiero at [facility] [place] in [place], [place]. Status post surgery (07/26/21) excision of subcutaneous mass Family History Grandfather Diabetes Paternal grandfather Grandmother Breast cancer Paternal grandmother--dx age 37 Family history of thyroid problem Paternal grandmother Family/Other Ovarian cancer Paternal aunt--dx age 30's Cervical cancer Paternal Aunt--dx age 30's Denies family history of Heart disease Hypercholesteremia Hypertension Uterine cancer Stroke Social History Smoking and tobacco/nicotine status: never used tobacco/nicotine Substance/Drug Use: never Physical Exam 2 Narrative: EXAM NARRATIVE: Constitutional: the patient appears well nourished and with normal development. Vital signs reviewed as documented. HENMT: Normocephalic, atraumatic. Extermal ears with normal appearance without drainage. Nose without drainage, normal appearance. Mucus membranes moist. Neck is supple, No jugular venous distension, trachea is midline, no appreciable carotid bruits. No lymphadenopathy. No meningeal signs. Flexion, extension and lateral rotation is without pain. Eyes: Pupils are equal, round, reactive to light and accommodation. No scleral icterus. Extra-ocular movement are intact. Thorax is symmetrical and with equal rise and fall with respirations. Resp: Lungs are clear to auscultation. No wheezes, rales, crackles or ronchi at present. Cardio: Regular rate and rhythm. Positive S1, S2. No appreciable murmurs, rubs or gallops. GI: Abdominal exam reveals normal bowel sounds to all quadrants. No organomegaly. No obvious palpable masses noted. No hepatomegally appreciated. Soft, nontender to palpation. Extremity: Extremities are non-edematous and both femoral and pedal pulses are 2+ and equal bilaterally. Moves all extremities well, sensation in all extremities. Neuro: Alert and oriented x4, person, place, time and situation. Cranial nerves II through XII are grossly intact, there is no focal neurological deficits that I can appreciate at present. Motor strength in the upper and lower extremities are equal and bilateral 5/5. Psych: Cooperative, calm, normal thought process, appropriate judgment. Skin: No lesions, rashes. No gross abnormalities noted. Back: Symmetrical, no obvious deformity, No CVA tenderness Course 2 Vital Signs: Vital signs: Vital Signs Temperature 98.5 F 03/15/23 06:50 Pulse Rate 96 03/15/23 06:50 Respiratory Rate 18 03/15/23 06:50 Blood Pressure 103/64 03/15/23 06:50 Pulse Oximetry 96 03/15/23 06:50 Oxygen Delivery Me thod Room Air 03/15/23 06:50 MDM - Fever Medical Decision Making Physical exam completed and documented, I will obtain a CBC, CMP, influenza A/B screen as well as COVID-19 screen I will obtain a chest radiograph as well as a urinalysis. And reevaluate. Differential diagnosis includes upper respiratory viral illness, viral gastroenteritis, acute appendicitis, gastroenteritis, mesenteric adenitis, influenza, COVID-19. Medical Records I reviewed the patient's medical records. Lab Data 03/15/23 07:02 03/15/23 07:02 Radiology Impressions Chest X-Ray 03/15/23 06:46 IMPRESSION: No acute findings. Abdomen/Pelvis CT 03/15/23 07:59 IMPRESSION: 1. 3.4 cm right ovarian cyst. 2. The appendix is well-visualized and appears normal Laboratory Results WBC 11.30 10^3/uL (3.29-11.43) 03/15/23 07:02 RBC 4.69 10^6/uL (3.85-5.65) 03/15/23 07:02 Hgb 14.40 g/dL (11.27-16.99) 03/15/23 07:02 Hct 41.9 % (36-47) 03/15/23 07:02 MCV 89.3 fl (85-98) 03/15/23 07:02 MCH 30.7 pg (27-33) 03/15/23 07:02 MCHC 34.4 g/dL (30-55) 03/15/23 07:02 RDW 11.9 % (12.1-15.1) L 03/15/23 07:02 Plt Count 166 10^3/cmm (157-399) 03/15/23 07:02 MPV 10.2 fL (7.4-10.4) 03/15/23 07:02 Neut % (Auto) 87.2 % 03/15/23 07:02 Lymph % (Auto) 4.2 % 03/15/23 07:02 [place] % (Auto) 6.0 % 03/15/23 07:02 Eos % (Auto) 1.9 % 03/15/23 07:02 Baso % (Auto) 0.3 % 03/15/23 07:02 Neut # (Auto) 9.86 10^3/uL (1.8-7.7) H 03/15/23 07:02 Lymph # (Auto) 0.5 10^3/uL (0.8-4.8) L 03/15/23 07:02 [place] # (Auto) 0.7 10^3/uL (0.2-0.9) 03/15/23 07:02 Eos # (Auto) 0.2 10^3/uL (0.0-0.8) 03/15/23 07:02 Baso # (Auto) 0.0 10^3/uL (0.0-0.1) 03/15/23 07:02 Nucleated RBC % (auto) 0 % 03/15/23 07:02 Nucleated RBCs # 0.0 /100WBC 03/15/23 07:02 Sodium 139 mmol/L (136-145) 03/15/23 07:02 Potassium 3.7 mmol/L (3.5-5.1) 03/15/23 07:02 Chloride 106 mmol/L (98-107) 03/15/23 07:02 Carbon Dioxide 23 mmol/L (22-29) 03/15/23 07:02 Anion Gap 13.7 (5-19) 03/15/23 07:02 BUN 5 mg/dL (6-20) L 03/15/23 07:02 Creatinine 0.6 mg/dL (0.5-0.9) 03/15/23 07:02 GFR Calculation 113.8 mL/min (90-130) 03/15/23 07:02 Glucose 108 mg/dL (65-115) 03/15/23 07:02 Calculated Osmolality 286 mOsm/kg (285-295) 03/15/23 07:02 Calcium 9.3 mg/dL (8.5-10.5) 03/15/23 07:02 Total Bilirubin 0.4 mg/dL (0.15-1.2) 03/15/23 07:02 AST 10 U/L (0-32) 03/15/23 07:02 ALT 9 U/L (0-33) 03/15/23 07:02 Alkaline Phosphatase 33 U/L (35-105) L 03/15/23 07:02 Total Protein 6.6 g/dL (6.6-8.7) 03/15/23 07:02 Albumin 3.8 g/dL (3.5-5.2) 03/15/23 07:02 Globulin 2.8 g/dL (1.3-4.6) 03/15/23 07:02 HCG, Qual Negative (Negative) 03/15/23 07:40 Urine Color Yellow (Yellow) 03/15/23 07:40 Urine Appearance Clear (CLEAR) 03/15/23 07:40 Urine pH 5 (5-7) 03/15/23 07:40 Ur Specific [place] 1.005 (1.005-1.030) 03/15/23 07:40 Urine Protein Neg (Negative) 03/15/23 07:40 Urine Glucose (UA) Norm (Normal) 03/15/23 07:40 Urine Ketones Negative (Negative) 03/15/23 07:40 Urine Blood Neg (Negative) 03/15/23 07:40 Urine Nitrate Negative (Negative) 03/15/23 07:40 Urine Bilirubin Neg (Negative) 03/15/23 07:40 Urine Urobilinogen Norm mg/dL (Negative) 03/15/23 07:40 Ur Leukocyte Esterase Negative (Negative) 03/15/23 07:40 Influenza Type A Ag negative (Negative) 03/15/23 07:00 Influenza Type B Ag negative (Negative) 03/15/23 07:00 SARS-CoV-2 Ag (Rapid) negative (Negative) 03/15/23 07:00 All radiology interpretation(s) finalized by discharge Discharge Plan Discharge Patient Disposition: Home Clinical Impression: Viral infection Condition: Stable Prescriptions: No Action phentermine 37.5 mg tablet 37.5 mg PO DAILY PRN acyclovir 800 mg tablet 800 mg PO TID Qty: 90 3RF metronidazole 500 mg tablet 500 mg PO BID Qty: 14 0RF cephalexin 500 mg capsule 500 mg PO BID Qty: 20 0RF fluconazole 150 mg tablet 150 mg PO DAILY Qty: 1 0RF nitrofurantoin monohyd/m-cryst [Macrobid] 100 mg capsule 100 mg PO DAILY Qty: 90 0RF Rx Instructions: must administer with a meal/food loratadine [Claritin] 10 mg Tablet 10 mg PO DAILY PRN (Reason: Allergy Symptoms) Discharge Orders: Discharge ED (Routine); Ordered 03/15/23 Ordered By: Gus Morgan Referrals: Nicolle Hinojosa MD [Primary Care Provider] - Discharge Diet: Advance as tolerated Patient Instructions: Opioid Safety, Pain Management Activity Restrictions/Additional Instructions: Activity Restrictions/Additional Instructions: Thank you for choosing [facility] for your healthcare needs today. Please realize that you were seen in the Emergency Department and that we are providing you with an emergency medical screening exam and this may not be a complete and all inclusive of all the testing and or medical work-up that you may need to determine your ailment or severity of your illness. It is very important that you follow-up as instructed with your Primary care provider or Specialist for additional evaluation and to discuss your medical treatment plan. You may return to the Emergency Department should you have concerns or if your condition changes or worsens in any way. Coding Level of Care Code ED Site Acquisition Specialist for Mark Arce
[2023-03-15 07:09] LABS: Basophils % 0.3 %; Eosinophils # 0.2 10^3/uL (0.0-0.8); Eosinophils % 1.9 %; Hematocrit 41.9 % (36-47); Lymphocytes # 0.5 10^3/uL (0.8-4.8); Lymphocytes % 4.2 %; Mean Corpuscular HGB Conc 34.4 g/dL (30-55); Mean Corpuscular Hemoglobin 30.7 pg (27-33); Mean Corpuscular Volume 89.3 fl (85-98); Mean Platelet Volume 10.2 fL (7.4-10.4); Monocytes # 0.7 10^3/uL (0.2-0.9); Neutrophils # 9.86 10^3/uL (1.8-7.7); Neutrophils % 87.2 %; Nucleated Red Blood Cells % 0 %; Platelet Count 166 10^3/cmm (157-399); Red Blood Count 4.69 10^6/uL (3.85-5.65); Red Cell Distribution Width 11.9 % (12.1-15.1)
[2023-03-15] MEDS: sodium chloride 0.9% 1,000 ML 999 ML IV (07:45)
[2023-03-15 07:49] LABS: Alanine Aminotransferase 9 U/L (0-33); Albumin Level 3.8 g/dL (3.5-5.2); Alkaline Phosphatase 33 U/L (35-105); Anion Gap 13.7 (5-19); Aspartate Amino Transferase 10 U/L (0-32); Blood Urea Nitrogen 5 mg/dL (6-20); Calcium 9.3 mg/dL (8.5-10.5); Carbon Dioxide 23 mmol/L (22-29); Chloride 106 mmol/L (98-107); Globulin 2.8 g/dL (1.3-4.6); Glomerular Filtration Rate 113.8 mL/min (90-130); Glucose 108 mg/dL (65-115); Osmolality Calculated 286 mOsm/kg (285-295); Potassium 3.7 mmol/L (3.5-5.1); Sodium 139 mmol/L (136-145); Total Bilirubin 0.4 mg/dL (0.15-1.2); Total Protein 6.6 g/dL (6.6-8.7)
[2023-03-15 07:54] LABS: Influenza A by IFA negative (Negative); Influenza B by IFA negative (Negative); SARS Covid-2 Antigen negative (Negative)
[2023-03-15 07:57] LABS: Add Urine Microscopic? NO; HCG Qualitative Urine. Negative (Negative)
[2023-03-15 07:58] LABS: Charge for UA Resulting for Rev
--- NOTE | 2023-03-15 07:59 | CTR_ITS ---
PROCEDURE INFORMATION: Exam: CT Abdomen And Pelvis With Contrast Exam date and time: 03/15/2023 8:18 AM Age: 33 years old Clinical indication: Abdominal pain; Localized; Right lower quadrant (rlq); Prior surgery; Surgery date: 6+ months; Surgery type: Hysto; Additional info: Rlq pain TECHNIQUE: Imaging protocol: Computed tomography of the abdomen and pelvis with contrast. Radiation optimization: All CT scans at this facility use at least one of these dose optimization techniques: automated exposure control; mA and/or kV adjustment per patient size (includes targeted exams where dose is matched to clinical indication); or iterative reconstruction. Contrast material: OMNI 350; Contrast volume: 100 ml; Contrast route: INTRAVENOUS (IV); COMPARISON: ES surgery / GI images 12/20/2019 5:38 AM RADIATION DOSE METRICS: Total DLP (mGy-cm): 441.93 FINDINGS: Liver: Subcentimeter cysts in the liver too small to further characterize Gallbladder and bile ducts: Normal. No calcified stones. No ductal dilation. Pancreas: Normal. No ductal dilation. Spleen: Normal. No splenomegaly. Adrenal glands: Normal. No mass. Kidneys and ureters: Normal. No hydronephrosis. Stomach and bowel: Unremarkable. No obstruction. No mucosal thickening. Appendix: No evidence of appendicitis. Intraperitoneal space: Unremarkable. No free air. No significant fluid collection. Vasculature: Unremarkable. No abdominal aortic aneurysm. Lymph nodes: Unremarkable. No enlarged lymph nodes. Urinary bladder: Unremarkable as visualized. Reproductive: 3.4 cm right ovarian cyst. Bones/joints: Unremarkable. No acute fracture. Soft tissues: Unremarkable. CT/CT abdomen pelvis w con* [id number] IMPRESSION: 1. 3.4 cm right ovarian cyst. 2. The appendix is well-visualized and appears normal
[2023-03-15 08:02] LABS: Bilirubin Urine Neg (Negative); Blood Urine Neg (Negative); Glucose Urine UA Norm (Normal); Ketones Urine Negative (Negative); Leukocyte Esterase Urine Negative (Negative); Nitrate Urine Negative (Negative); Protein Urine Neg (Negative); Specific Gravity, Urine 1.005 (1.005-1.030); Urine Appearance Clear (CLEAR); Urine Color Yellow (Yellow); Urobilinogen Urine Norm (Negative); pH Urine 5 (5-7)
[2023-03-15] MEDS: iohexol 350 mg/mL 500 mL Btl (per mL) IV (08:24)
== END 2023-03-15 09:12 | disposition home or self-care (01) ==
PROVIDERS: Emergency Provider Internal Medicine; PCP Family Medicine
DX: B34.9 Viral infection, unspecified (principal); Z11.52 Encounter for screening for COVID-19; N83.201 Unspecified ovarian cyst, right side
CPT/HCPCS: 36415; 71046; 74177; 80053; 81003; 81025; 85025; 87426; 87804; 99285; J7030; Q9967

== ENCOUNTER → 2024-04-18 10:55 | Outpatient (BNVA) | payer OTHER, SELFPAY | PROVIDERS: PCP Family Medicine; Visit Provider Family Medicine | DX: Z80.0 Family history of malignant neoplasm of digestive organs (principal) | CPT/HCPCS: 80053; 82378; 85025 ==

== ENCOUNTER → 2024-11-02 08:28 | Outpatient (BNVA) | payer OTHER, SELFPAY | PROVIDERS: PCP Family Medicine; Visit Provider Nurse Practitioner Family | DX: R30.0 Dysuria (principal) | CPT/HCPCS: 81003; 87086 ==

== ENCOUNTER → 2024-11-16 08:23 | Outpatient (BNVA) | payer OTHER, SELFPAY | PROVIDERS: PCP Family Medicine; Visit Provider Nurse Practitioner Family | DX: Z00.00 Encounter for general adult medical examination without abnormal findings (principal); Z79.899 Other long term (current) drug therapy; Z13.6 Encounter for screening for cardiovascular disorders; Z80.3 Family history of malignant neoplasm of breast; Z80.0 Family history of malignant neoplasm of digestive organs | CPT/HCPCS: 80053; 80061; 81003; 82306; 83036; 84443; 85025; 86304 ==

== ENCOUNTER 2025-01-11 09:29 | Outpatient (CLI) | payer OTHER, SELFPAY ==
--- NOTE | 2025-01-11 09:40 | MM_ITS ---
WS: [id number] SCREENING DIGITAL BREAST TOMOSYNTHESIS MAMMOGRAM WITH CAD HISTORY: Z12.39 - Encounter for other screening for malignant neop... COMPARISON: None available. Bilateral CC and MLO with tomosynthesis and synthetic mammography submitted. Computer aided detection analyzed. Breast composition: The breasts are extremely dense, which lowers the sensitivity of mammography. Focal asymmetry noted in the medial posterior LEFT breast on the cc view only. This asymmetry is probably obscured by dense breast tissue on the lateral projection. This may be a lymph node. No suspicious grouping of calcifications. No distortion. MM/MM scr BI tomosynthesis [id number] IMPRESSION: BI-RADS: 0 - Incomplete: Need additional imaging evaluation FOLLOW UP: Need Additional Imaging LEFT breast: Spot compression views (CC ). True ML. Ultrasound to follow if abn ormality persists.
== END 2025-01-11 09:30 | disposition home or self-care (01) ==
PROVIDERS: PCP Nurse Practitioner Family; Visit Provider Nurse Practitioner Family
DX: Z12.31 Encounter for screening mammogram for malignant neoplasm of breast (principal); Z00.00 Encounter for general adult medical examination without abnormal findings; Z79.899 Other long term (current) drug therapy; Z13.6 Encounter for screening for cardiovascular disorders; Z80.0 Family history of malignant neoplasm of digestive organs; R92.343 Mammographic extreme density, bilateral breasts; N64.89 Other specified disorders of breast
CPT/HCPCS: 77063; 77067

== ENCOUNTER 2025-01-23 10:57 | Outpatient (CLI) | payer OTHER, SELFPAY ==
--- NOTE | 2025-01-23 11:15 | MM_ITS ---
WS: [id number] ADDITIONAL VIEWS LEFT MAMMOGRAM WITH DIGITAL BREAST TOMOSYNTHESIS. LEFT breast ultrasound, limited HISTORY: Follow-up screening mammogram. COMPARISON: 01/11/2025 Spot compression views LEFT breast in CC, MLO projections and true ML submitted with digital breast tomosynthesis and SM. Breast composition: The breasts are extremely dense, which lowers the sensitivity of mammography. Reidentified are 2 adjacent 4 mm masses in the central LEFT breast just posterior to the nipple and slightly medial to the nipple line. No associated calcifications or distortion. LEFT breast ultrasound, limited. Ultrasound is directed from 8-10 o'clock. At 10:00 at a middle depth are 2 adjacent very tiny cysts each measuring about 4 mm. These do correspond in size and location to the mammographic abnormality. These are difficult to characterize due to their small size. MM/MM diag LT tomosynthesis [id number] IMPRESSION: BI-RADS: 3 - Probably Benign FOLLOW UP: 6 Month Follow-up Recommend diagnostic LEFT mammogram follow-up and ultrasound in 6 months. Favor the findings are benign. This was discussed with the patient at the time of e ultrasound.
--- NOTE | 2025-01-23 11:45 | US_ITS ---
WS: [id number] ADDITIONAL VIEWS LEFT MAMMOGRAM WITH DIGITAL BREAST TOMOSYNTHESIS. LEFT breast ultrasound, limited HISTORY: Follow-up screening mammogram. COMPARISON: 01/11/2025 Spot compression views LEFT breast in CC, MLO projections and true ML submitted with digital breast tomosynthesis and SM. Breast composition: The breasts are extremely dense, which lowers the sensitivity of mammography. Reidentified are 2 adjacent 4 mm masses in the central LEFT breast just posterior to the nipple and slightly medial to the nipple line. No associated calcifications or distortion. LEFT breast ultrasound, limited. Ultrasound is directed from 8-10 o'clock. At 10:00 at a middle depth are 2 adjacent very tiny cysts each measuring about 4 mm. These do correspond in size and location to the mammographic abnormality. These are difficult to characterize due to their small size. US/US breast LT limited* [id number] IMPRESSION: BI-RADS: 3 - Probably Benign FOLLOW UP: 6 Month Follow-up Recommend diagnostic LEFT mammogram follow-up and ultrasound in 6 months. Favor the findings are benign. This was discussed with the patient at the time of e ultrasound.
== END 2025-01-23 10:58 | disposition home or self-care (01) ==
LOC: RAD 10:58
PROVIDERS: PCP Nurse Practitioner Family; Visit Provider Nurse Practitioner Family
DX: R92.8 Other abnormal and inconclusive findings on diagnostic imaging of breast (principal); R92.343 Mammographic extreme density, bilateral breasts; N64.89 Other specified disorders of breast
CPT/HCPCS: 76642; 77061; 77063